=== PATIENT | male | born 1950 | race Caucasian/White ===

== ENCOUNTER 2018-07-08 18:50 | Emergency (ER) | payer BC ==
[~2018-07-08] VITALS: Ht 167.6 cm; Wt 70.3 kg
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
--- NOTE | 2018-07-08 20:13 | NUR ---
Able to move all extremities. No acute distress noted.
--- NOTE | 2018-07-08 20:24 | NUR ---
Dr. Ayden RODRIGUEZ MD at bedside to evaluate pt.
--- NOTE | 2018-07-08 20:52 | NUR ---
Pt went down to radiology dept for CT scan.
--- NOTE | 2018-07-08 21:05 | NUR ---
Pt back from radiology dept, placed back to room 4B.
--- NOTE | 2018-07-08 21:47 | NUR ---
Patient discharged to home in stable conditon. Written and verbal after care instructions given. Patient verbalizes understanding of instructions. Pt ambulated out of ER in steady gait. All belongings w pt. VSS. NAD noted.
[2018-07-08 21:50] VITALS: BP 122/81
== END 2018-07-08 21:51 | disposition home or self-care (01) ==
LOC: ER 18:50
DX: S13.4XXA Sprain of ligaments of cervical spine, initial encounter (principal); I10 Essential (primary) hypertension; Z88.1 Allergy status to other antibiotic agents; Z88.8 Allergy status to other drugs, medicaments and biological substances; V49.9XXA Car occupant (driver) (passenger) injured in unspecified traffic accident, initial encounter; Y93.89 Activity, other specified; Y92.89 Other specified places as the place of occurrence of the external cause; Y99.8 Other external cause status
CPT/HCPCS: 70450; 72125; A4663